=== PATIENT | female | born 2000 | race African-American/Black ===

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

== ENCOUNTER 2021-06-11 11:34 | Emergency (ER) | payer OTHER ==
[2021-06-11 12:19] VITALS: BP 101/62; PULSE 99; TEMP 98.2; BMI 17.7
[2021-06-11] MEDS ORDERED: ACETAMINOPHEN 500 MG TABLET (FP) PO ONE (12:50)
== END 2021-06-11 14:30 | disposition home or self-care (01) ==
LOC: JER 11:34
DX: J02.9 Acute pharyngitis, unspecified (principal)
CPT/HCPCS: 99283-25; C9803; U0003; U0005

== ENCOUNTER 2021-09-22 15:00 | Emergency (ER) | payer OTHER ==
[2021-09-22 15:25] VITALS: BP 113/71; PULSE 116; TEMP 100.1; BMI 18.5
[2021-09-23 23:06] LABS: SARS-CoV-2 NAA Detected (Not Detected)
== END 2021-09-22 17:13 | disposition home or self-care (01) ==
LOC: JER 15:00
DX: R05.9 Cough, unspecified (principal); R50.9 Fever, unspecified; Z20.822 Contact with and (suspected) exposure to COVID-19
CPT/HCPCS: 87804; 99283-25; C9803; U0003; U0005

== ENCOUNTER 2022-05-11 13:39 | Emergency (ER) | payer OTHER ==
[2022-05-11 13:43] VITALS: BP 125/77; PULSE 101; RESP 18; TEMP 98.1; BMI 18.5
[2022-05-11] MEDS ORDERED: SODIUM CHLORIDE 1,000 ML IV STA (14:54)
[2022-05-11] MEDS ORDERED: KETOROLAC TROMETHAMINE 30 MG/1 ML VIAL IVPUSH ONE (14:55)
[2022-05-11] MEDS ORDERED: METOCLOPRAMIDE HCL INJECTION 10 MG/2 ML VIAL IM ONE (14:55)
[2022-05-11] MEDS ORDERED: METOCLOPRAMIDE HCL INJECTION 10 MG/2 ML VIAL ONE (15:00)
[2022-05-11] MEDS ORDERED: KETOROLAC TROMETHAMINE 30 MG/1 ML VIAL ONE (15:01)
== END 2022-05-11 17:23 | disposition home or self-care (01) ==
LOC: JER 13:39
PROC: 3E023NZ Introduction of Analgesics, Hypnotics, Sedatives into Muscle, Percutaneous Approach (ICD-10-PCS; principal; 2022-05-11)
PROC: 3E033NZ Introduction of Analgesics, Hypnotics, Sedatives into Peripheral Vein, Percutaneous Approach (ICD-10-PCS; 2022-05-11)
PROC: 3E0333Z Introduction of Anti-inflammatory into Peripheral Vein, Percutaneous Approach (ICD-10-PCS; 2022-05-11)
PROC: 3E0337Z Introduction of Electrolytic and Water Balance Substance into Peripheral Vein, Percutaneous Approach (ICD-10-PCS; 2022-05-11)
DX: G44.89 Other headache syndrome (principal)
CPT/HCPCS: 0241U-QW; 99284-25

== ENCOUNTER 2022-05-13 13:27 | Emergency (ER) | payer OTHER ==
[2022-05-13 13:48] VITALS: BMI 18.5
[2022-05-13] MEDS ORDERED: METOCLOPRAMIDE HCL INJECTION 10 MG/2 ML VIAL IVPUSH ONE (15:16)
[2022-05-13] MEDS ORDERED: METOCLOPRAMIDE HCL INJECTION 10 MG/2 ML VIAL ONE (15:48)
[2022-05-13 18:23] VITALS: BP 99/55; PULSE 76; RESP 16; TEMP 97.6
== END 2022-05-13 18:20 | disposition home or self-care (01) ==
LOC: JER 13:27
PROC: 3E033GC Introduction of Other Therapeutic Substance into Peripheral Vein, Percutaneous Approach (ICD-10-PCS; principal; 2022-05-13)
PROC: 3E033GC Introduction of Other Therapeutic Substance into Peripheral Vein, Percutaneous Approach (ICD-10-PCS; 2022-05-13)
DX: G44.89 Other headache syndrome (principal)
CPT/HCPCS: 70450-TC; 99284-25

== ENCOUNTER 2022-08-17 12:45 | Emergency (ER) | payer OTHER ==
[2022-08-17 13:39] VITALS: BP 107/62; PULSE 90; RESP 20; TEMP 98.2; BMI 17.6
== END 2022-08-17 15:23 | disposition home or self-care (01) ==
LOC: JER 12:45
DX: R09.81 Nasal congestion (principal); J02.9 Acute pharyngitis, unspecified
CPT/HCPCS: 0241U-QW; 87651; 99283-25

== ENCOUNTER 2022-08-21 14:49 | Emergency (ER) | payer OTHER ==
[2022-08-21 15:40] VITALS: BP 113/67; PULSE 140; RESP 16; TEMP 100.4; BMI 19.5
[2022-08-21] MEDS ORDERED: ACETAMINOPHEN 500 MG TABLET (FP) PO ONE (16:02)
[2022-08-21] MEDS ORDERED: IBUPROFEN 600 MG TABLET (FP) PO ONE (16:02)
[2022-08-21] MEDS ORDERED: ACETAMINOPHEN 325 MG TABLET (FP) PO ONE (16:20)
== END 2022-08-21 17:51 | disposition home or self-care (01) ==
LOC: JER 14:49
DX: U07.1 COVID-19 (principal)
CPT/HCPCS: 0241U-QW; 71046-TC-FY; 99284-25

== ENCOUNTER 2022-10-27 19:46 | Emergency (ER) | payer SELFPAY ==
[2022-10-27 20:03] VITALS: BP 104/70; RESP 19; TEMP 99.3; BMI 17.6
[2022-10-27 20:04] VITALS: PULSE 96
[2022-10-27] MEDS ORDERED: DEXAMETHASONE SOD PHOSPHATE 10 MG/1 ML VIAL IM ONE (21:49)
[2022-10-27] MEDS ORDERED: DEXAMETHASONE SOD PHOSPHATE 10 MG/1 ML VIAL ONE (22:07)
[2022-10-27] MEDS ORDERED: PENICILLIN G BENZATHINE 1,200,000 UNIT/2 ML PFS IM ONE ×2 (22:08→22:09)
== END 2022-10-27 22:22 | disposition home or self-care (01) ==
LOC: JER 19:46
PROC: 3E023GC Introduction of Other Therapeutic Substance into Muscle, Percutaneous Approach (ICD-10-PCS; principal; 2022-10-27)
PROC: 3E02329 Introduction of Other Anti-infective into Muscle, Percutaneous Approach (ICD-10-PCS; 2022-10-27)
DX: J02.0 Streptococcal pharyngitis (principal); R51.9 Headache, unspecified; R09.81 Nasal congestion
CPT/HCPCS: 0241U-QW; 87651; 99284-25; J1100

== ENCOUNTER 2023-04-10 12:08 | Emergency (ER) | payer BC, OTHER ==
[2023-04-10 12:16] VITALS: BP 107/71; PULSE 78; RESP 19; TEMP 98.2; BMI 17.6
[2023-04-10] MEDS ORDERED: SODIUM CHLORIDE 0.9% 500 ML INFUS.BAG IV ONE (13:00)
[2023-04-10] MEDS ORDERED: FAMOTIDINE 20 MG/50 ML IVPB 20 MG/50 ML MG IVPB ONE ×2 (13:00→13:22)
[2023-04-10] MEDS ORDERED: ACETAMINOPHEN 1000 MG/100 ML BAG IVPB ONE (13:00)
[2023-04-10] MEDS ORDERED: ACETAMINOPHEN INJECTION 100 ML IVPB ONE (13:22)
[2023-04-10 13:51] LABS: BASO % 1.2 % (0-2.0); EOS % 1.3 % (0-4.5); HEMATOCRIT 37.2 % (32.4-45.2); LYMPH % 34.5 % (8-40); MCH 30.5 pg (25.7-33.7); MCHC 32.2 g/dl (32.0-36.0); MEAN CELL VOLUME 94.7 fl (80-96); MEAN PLT VOLUME 8.6 fl (7.5-11.1); MONO % 6.9 % (3.8-10.2); NEUT % 56.1 % (42.8-82.8); PLATELET COUNT 328 10^3/uL (134-434); RBC 3.93 M/mm3 (3.60-5.2); RDW 13.8 % (11.6-15.6); WHITE BLOOD COUNT 6.9 K/mm3 (4.0-10.0)
[2023-04-10 13:52] LABS: URINE APPEARANCE CLEAR; URINE BILIRUBIN NEGATIVE (NEGATIVE); URINE COLOR YELLOW; URINE GLUCOSE (UA) NEGATIVE (NEGATIVE); URINE KETONE TRACE (NEGATIVE); URINE LEUK ESTERASE NEGATIVE (NEGATIVE); URINE NITRITE NEGATIVE (NEGATIVE); URINE PROTEIN NEGATIVE (NEGATIVE)
[2023-04-10 13:59] LABS: HCG,QUALITATIVE URINE Negative
[2023-04-10 14:01] LABS: POTASSIUM 4.8 mmol/L (3.5-5.1)
[2023-04-10 14:03] LABS: CALCIUM 9.2 mg/dL (8.5-10.1)
[2023-04-10 14:04] LABS: BLOOD UREA NITROGEN 7.9 mg/dL (7-18)
[2023-04-10 14:06] LABS: CREATININE 0.8 mg/dL (0.55-1.3)
[2023-04-10 14:07] LABS: TOT PROT 7.6 g/dl (6.4-8.2)
[2023-04-10 14:11] LABS: BILIRUBIN,TOTAL 0.6 mg/dL (0.2-1)
[2023-04-10] MEDS ORDERED: KETOROLAC TROMETHAMINE 30 MG/1 ML VIAL IVPUSH ONE (17:24)
[2023-04-10] MEDS ORDERED: KETOROLAC TROMETHAMINE 30 MG/1 ML VIAL ONE (17:54)
[2023-04-10] MEDS ORDERED: ONDANSETRON 4 MG/2 ML VIAL IVPUSH ONE (20:45)
[2023-04-10] MEDS ORDERED: ONDANSETRON 4 MG/2 ML VIAL ONE (20:56)
== END 2023-04-10 22:02 | disposition home or self-care (01) ==
LOC: JER 12:08
PROC: 3E033GC Introduction of Other Therapeutic Substance into Peripheral Vein, Percutaneous Approach (ICD-10-PCS; principal; 2023-04-10)
PROC: 3E033NZ Introduction of Analgesics, Hypnotics, Sedatives into Peripheral Vein, Percutaneous Approach (ICD-10-PCS; 2023-04-10)
PROC: 3E0333Z Introduction of Anti-inflammatory into Peripheral Vein, Percutaneous Approach (ICD-10-PCS; 2023-04-10)
PROC: 3E033GC Introduction of Other Therapeutic Substance into Peripheral Vein, Percutaneous Approach (ICD-10-PCS; 2023-04-10)
DX: R10.31 Right lower quadrant pain (principal); M54.50 Low back pain, unspecified; R11.0 Nausea; K59.00 Constipation, unspecified
CPT/HCPCS: 36415; 74177-TC; 76705-TC; 76830-TC; 80053; 81003; 83690; 84703; 85025; 87081; 87086; 87110; 87491; 87591; 87661; 99285-25; Q9967

== ENCOUNTER 2023-10-20 20:35 | Emergency (ER) | payer BC ==
[2023-10-20 20:46] VITALS: BMI 17.6
[2023-10-20 21:29] LABS: EPI CELLS >36 /uL (0-25.1); HYALINE CASTS 1 /uL (0-3.1); URINE APPEARANCE CLOUDY; URINE BACTERIA 115 /uL (0-1359); URINE BILIRUBIN NEGATIVE (NEGATIVE); URINE COLOR YELLOW; URINE GLUCOSE (UA) NEGATIVE (NEGATIVE); URINE KETONE TRACE (NEGATIVE); URINE LEUK ESTERASE NEGATIVE (NEGATIVE); URINE NITRITE NEGATIVE (NEGATIVE); URINE PROTEIN 1+ (NEGATIVE); URINE RBC 13 /uL (0-23.9); URINE WBC 27 /uL (0-25.8)
[2023-10-20] MEDS ORDERED: ACETAMINOPHEN 1000 MG/100 ML BAG IVPB ONE (21:41)
[2023-10-20] MEDS ORDERED: ONDANSETRON 4 MG/2 ML VIAL IVPUSH ONE (21:41)
[2023-10-20 21:45] LABS: HCG,QUALITATIVE URINE NEGATIVE
[2023-10-20] MEDS ORDERED: ACETAMINOPHEN INJECTION 100 ML IVPB ONE (21:50)
[2023-10-20] MEDS ORDERED: ONDANSETRON 4 MG/2 ML VIAL ONE (21:50)
[2023-10-20] MEDS ORDERED: KETOROLAC TROMETHAMINE 15 MG/ML VIAL IVPUSH ONE (21:58)
[2023-10-20] MEDS ORDERED: KETOROLAC TROMETHAMINE 15 MG/ML VIAL ONE (22:01)
[2023-10-20 22:03] LABS: BASO % 0.9 % (0-2.0); EOS % 1.4 % (0-4.5); HEMOGLOBIN 11.9 GM/dL (10.7-15.3); LYMPH % 36.6 % (8-40); MCH 31.1 pg (25.7-33.7); MCHC 33.1 g/dl (32.0-36.0); MEAN CELL VOLUME 93.9 fl (80-96); MEAN PLT VOLUME 7.7 fl (7.5-11.1); MONO % 8.7 % (3.8-10.2); NEUT % 52.4 % (42.8-82.8); PLATELET COUNT 310 10^3/uL (134-434); RBC 3.84 M/mm3 (3.60-5.2); RDW 14.1 % (11.6-15.6); WHITE BLOOD COUNT 8.5 K/mm3 (4.0-10.0)
[2023-10-20 22:12] LABS: INR 1.17 (0.83-1.09); PROTHROMBIN TIME (PATIENT) 13.5 SEC (9.7-13.0)
[2023-10-20 22:15] LABS: ACTIVATED PTT 29.2 SECONDS (25.2-36.5)
[2023-10-20 22:22] LABS: POTASSIUM 4.1 mmol/L (3.5-5.1)
[2023-10-20 22:24] LABS: CALCIUM 9.4 mg/dL (8.5-10.1)
[2023-10-20 22:25] LABS: ALBUMIN 3.9 g/dl (3.4-5.0); BLOOD UREA NITROGEN 10.3 mg/dL (7-18)
[2023-10-20 22:28] LABS: CREATININE 1.1 mg/dL (0.55-1.3)
[2023-10-20 22:29] LABS: TOT PROT 7.2 g/dl (6.4-8.2)
[2023-10-20 22:38] LABS: BILIRUBIN,TOTAL 0.4 mg/dL (0.2-1)
[2023-10-21 02:21] VITALS: BP 104/58; PULSE 71; RESP 14; TEMP 98.3
== END 2023-10-21 02:31 | disposition home or self-care (01) ==
LOC: JER 20:35
PROC: 3E033NZ Introduction of Analgesics, Hypnotics, Sedatives into Peripheral Vein, Percutaneous Approach (ICD-10-PCS; principal; 2023-10-20)
PROC: 3E0333Z Introduction of Anti-inflammatory into Peripheral Vein, Percutaneous Approach (ICD-10-PCS; 2023-10-20)
PROC: 3E033GC Introduction of Other Therapeutic Substance into Peripheral Vein, Percutaneous Approach (ICD-10-PCS; 2023-10-20)
DX: N93.9 Abnormal uterine and vaginal bleeding, unspecified (principal); R10.31 Right lower quadrant pain; R35.0 Frequency of micturition; R10.32 Left lower quadrant pain; N83.201 Unspecified ovarian cyst, right side
CPT/HCPCS: 36415; 74177-TC; 76830-TC; 80053; 81003; 84703; 85025; 85610; 85730; 86850; 86900; 86901; 87086; 87491; 87591; 87661; 93005; 93010; 99285-25